=== PATIENT | male | born 1960 | race Caucasian/White ===

== ENCOUNTER 2016-10-07 12:52 | Emergency (ER) | payer OTHER ==
[2016-10-07 13:31] VITALS: BP 164/91; PULSE 92; RESP 16; TEMP 97.5; O2SAT 98
[2016-10-07] MEDS ORDERED: chlordiazePOXIDE 25 MG CAP PO ONE (14:06)
--- NOTE | 2016-10-07 14:09 | EDPHY ---
H & P Stated Complaint: sent from [facility] for etoh with/draw concerns Time Seen by Provider: 10/07/16 13:52 HPI/ROS: CHIEF COMPLAINT: here for Librium prior to arc HISTORY OF PRESENT ILLNESS: 56-year-old male presents emergency department by ambulance from the [facility]. Patient called 911 earlier today and he was found to be intoxicated so they brought him to the [facility]. They sent him here as they are concerned he will withdrawal from alcohol and a requesting Librium. The patient reports his last drink was a few hours ago. He denies history of alcohol withdrawals. He reports he drinks 26 oz of vodka daily. REVIEW OF SYSTEMS: A comprehensive 10 point review of systems is otherwise negative aside from elements mentioned in the history of present illness. Source: Patient Exam Limitations: No limitations - Personal History Current Tetanus/Diphtheria Vaccine: Unsure Current Tetanus Diphtheria and Acellular Pertussis (TDAP): Unsure - Medical/Surgical History Hx Asthma: No Hx Chronic Respiratory Disease: No Hx Diabetes: No Hx Cardiac Disease: No Hx Renal Disease: No Hx Cirrhosis: No Hx Alcoholism: Yes Hx HIV/AIDS: No Hx Splenectomy or Spleen Trauma: No Other PMH: ETOH abuse, right hernia repair, inguinal hernia repair, - Social History Smoking Status: Former smoker Alcohol Use: Heavy - Physical Exam Exam: Physical Exam Gen: Alert and Oriented, NAD HEENT: PERRL, moist mucous membranes NECK: no meningismus CV: regular rate and regular rhythm PULM: CTAB, no wheezes ABDOMEN: soft, non tender to palpation, BS present BACK: No CVA tenderness NEURO: Neurologically grossly intact, mild tongue fasciculations, mild hand tremors EXTREMITIES: normal appearing SKIN: no rash or break in skin on exposed skin PSYCH: answers questions appropriately. Constitutional: Initial Vital Signs Temperature (C) 36.4 C 10/07/16 13:29 Heart Rate 92 10/07/16 13:29 Respiratory Rate 16 10/07/16 13:29 Blood Pressure 164/91 H 10/07/16 13:29 O2 Sat (%) 98 10/07/16 13:29 O2 Delivery Mode Room Air Allergies/Adverse Reactions: No Known Allergies Allergy (Unverified 11/24/11 07:42) Medical Decision Making ED Course/Re-evaluation: On exam patient has mild tongue fasciculations and tremors, he has no evidence of delirium tremens. He has normal vital signs, ambulates without difficulty, stable on feet. [facility] Librium prepack. - Data Points Medications Given: Discontinued Medications Chlordiazepoxide (Librium 25 Mg Prepack#6) 1 btl TAKEHOME EDNOW ONE Stop: 10/07/16 14:12 Last Admin: 10/07/16 14:17 Dose: 1 btl Chlordiazepoxide HCl (Librium) 50 mg PO EDNOW ONE Stop: 10/07/16 14:07 Last Admin: 10/07/16 14:16 Dose: 50 mg Departure - Departure Disposition: Home, Routine, Self-Care Clinical Impression: Alcohol abuse Condition: Good Instructions: Chlordiazepoxide (By mouth), Alcohol Dependence (ED) Additional Instructions: Take 25-50 mg of Librium every 6 hours as needed for alcohol withdrawal. Do not drink alcohol with this. Referrals: NELSON PATEL [Primary Care Provider] - As per Instructions
[2016-10-07] MEDS ORDERED: CHLORDIAZEPOXIDE 25MG PREPK#6 BTL TAKEHOME ONE (14:11)
== END 2016-10-07 14:30 | disposition home or self-care (01) ==
DX: F10.10 Alcohol abuse, uncomplicated (principal); Z87.891 Personal history of nicotine dependence